=== PATIENT | male | born 1955 | race Caucasian/White ===

== ENCOUNTER 2018-04-12 13:47 | Day surgery (SDC) | payer MEDICARE, BC ==
[~2018-04-12] VITALS: Ht 177.8 cm; Wt 86.2 kg
[~2018-04-12 13:47] MED LIST: ASPI1TAB PO; BISO5TAB5 PO; FLOM0.4C39 PO; GLIM4TAB PO; HYDR2TAB2 PO; HYDR4TAB PO; ISOVUE-300 61% 50ML VIAL (Q9967) As Ordered ONE; LIDOCAINE 1% MDV 20ML VIAL SQ PRN; LIDOCAINE 2% INJ 100 MG/5 ML SDV (FOR ANES.) As Ordered ONE; LOSA25TA14 PO; MECL1CHW2 PO; METF500T13 PO; MIDAZOLAM INJ 2 MG/2 ML VIAL (J2250) As Ordered ONE; MORP30TASA PO; ONDANSETRON 4MG/2ML VIAL (J2405) As Ordered ONE; PRAV80TA2 PO; PROPOFOL 200 MG/20 ML VIAL As Ordered ONE; RANI150T PO; ROCURONIUM BROMIDE 50 MG/5 ML VIAL As Ordered ONE; TIOT18INH INH; VENTAER INH; VITAMIN D2 PO; dexameTHASONE 4 MG/ML 1ML VIAL (J1100) As Ordered ONE; fentaNYL 100 MCG/2 ML INJECTION (J3010) As Ordered ONE
[2018-04-12] MEDS ORDERED: LR 1,000 ML IV ONE (14:00)
[2018-04-12] MEDS ORDERED: fentaNYL 100 MCG/2 ML INJECTION (J3010) As Ordered ONE (15:08)
[2018-04-12] MEDS ORDERED: ePHEDrine SULFATE 25 MG/5 ML(5MG/ML) SYRINGE As Ordered ONE ×2 (15:45→16:41)
[2018-04-12] MEDS ORDERED: GLYCOPYRROLATE INJ 0.2 MG/ML 2 ML VIAL As Ordered ONE (15:54)
[2018-04-12] MEDS ORDERED: NEOSTIGMINE 10 MG/10 ML VIAL (J2710) As Ordered ONE (15:54)
[2018-04-12] MEDS ORDERED: ONDANSETRON 4MG/2ML VIAL (J2405) IV PRN (17:15)
[2018-04-12] MEDS ORDERED: PERCOCET 5MG/325MG TAB PO PRN (17:15)
[2018-04-12] MEDS ORDERED: METOCLOPRAMIDE INJ 10MG/2ML VIAL (J2765) IV PRN (17:15)
[2018-04-12] MEDS ORDERED: LR 1,000 ML IV SCH (17:15)
[2018-04-12] MEDS ORDERED: fentaNYL 100 MCG/2 ML INJECTION (J3010) IV PRN (17:15)
--- NOTE | 2018-04-12 17:24 | ROOR ---
Patient Name: Deniz Reynolds Procedure Date: 04/12/2018 1:47 PM Date of : 1955 Age: 62 Room: Main OR Gender: Male Note Status: Finalized Procedure: ERCP Indications: Bile duct stone(s) Providers: Eliazar Milian MD Referring MD: Sandhya Menendez MD Requesting Provider: Medicines: Monitored Anesthesia Care Complications: No immediate complications. Procedure: Pre-Anesthesia Assessment: - Prior to the procedure, a History and Physical was performed, and patient medications and allergies were reviewed. The patient is competent. The risks and benefits of the procedure and the sedation options and risks were discussed with the patient. All questions were answered and informed consent was obtained. Patient identification and proposed procedure were verified by the physician, the nurse and the anesthesiologist in the procedure room. Mental Status Examination: alert and oriented. Airway Examination: normal oropharyngeal airway and neck mobility. Respiratory Examination: clear to auscultation. CV Examination: normal. Prophylactic Antibiotics: The patient does not require prophylactic antibiotics. Prior Anticoagulants: The patient has taken no previous anticoagulant or antiplatelet agents. ASA Grade Assessment: II - A patient with mild systemic disease. After reviewing the risks and benefits, the patient was deemed in satisfactory condition to undergo the procedure. The anesthesia plan was to use monitored anesthesia care (MAC). Immediately prior to administration of medications, the patient was re-assessed for adequacy to receive sedatives. The heart rate, respiratory rate, oxygen saturations, blood pressure, adequacy of pulmonary ventilation, and response to care were monitored throughout the procedure. The physical status of the patient was re-assessed after the procedure. The Duodenoscope was introduced through the mouth, and advanced to the duodenum and used to inject contrast into the bile duct. The ERCP was accomplished without difficulty. The patient tolerated the procedure well. Findings: The senior security engineer film was normal. The esophagus was successfully intubated under direct vision without detailed examination of the pharynx, larynx, and associated structures. The scope was passed through the upper GI tract without discovering UGI findings. The major papilla was adjacent to a diverticulum. The major papilla was normal. 0.035 inch x 260 cm straight Hydra Jagwire was passed into the biliary tree. The short-nosed traction sphincterotome was passed over the guidewire and the bile duct was then deeply cannulated. Contrast was injected. The main bile duct was diffusely dilated, with a stone causing an obstruction. The largest diameter was 12 mm. The lower third of the main bile duct contained multiple stones, the largest of which was 10 mm in diameter. Biliary sphincterotomy was made with a monofilament traction (standard) sphincterotome using ERBE electrocautery. There was no post-sphincterotomy bleeding. To discover objects, the biliary tree was swept with a 9 mm balloon starting at the bifurcation. Sludge was swept from the duct. Stones were large and did not come out with balloon sweep. One 10 Fr by 7 cm plastic stent with a single external flap and a single internal flap was placed into the common bile duct. Bile flowed through the stent. The stent was in good position. Impression: - The major papilla was adjacent to a diverticulum. - The major papilla appeared normal. - The entire main bile duct was dilated, with a stone causing an obstruction. - Choledocholithiasis was found. Stones were large and did not come out with balloon sweep. So a stent was inserted. - A biliary sphincterotomy was performed. - The biliary tree was swept and sludge was found. - One plastic stent was placed into the common bile duct. Recommendation: - Avoid aspirin and nonsteroidal anti-inflammatory medicines. - The patient will be observed post-procedure, until all discharge criteria are met. - Patient has a contact number available for emergencies. The signs and symptoms of potential delayed complications were discussed with the patient. Return to normal activities tomorrow. Written discharge instructions were provided to the patient. - Full liquid diet for 1 day, then advance as tolerated to resume previous diet. - Use Actigall (ursodiol) 300 mg PO BID for 4 weeks. - Repeat ERCP in 2 months per protocol. - Return to GI clinic in [facility] (address [address], [address], [place] [address]) in 4 -- 6 weeks. Please call GI clinic @ [phone] for apppointment date and time. - Return to primary care physician. Eliazar Milian MD Eliazar Milian MD 04/12/2018 5:23:50 PM This report has been signed electronically. Number of Addenda: 0 Note Initiated On: 04/12/2018 1:47 PM Estimated Blood Loss: Estimated blood loss was minimal.
[2018-04-12 18:55] VITALS: BP 164/71
--- NOTE | 2018-04-12 20:22 | REP ---
ERCP: 94 views. History: Choledocholithiasis. Findings: A sequence of 94 last image hold fluoroscopic spot radiographs of the abdomen taken during the endoscopy procedure documents common bile duct cannulation, contrast injection, multiple choledocholiths, balloon catheter manipulation, and CBD stent placement. 1 minute 53 seconds of fluoroscopy time is reported. Electronically Signed by Mitch Flores MD 04/13/2018 08:14 A
--- NOTE | 2018-04-12 22:08 | ECGEPIP ---
Stationary ECG Study [facility] Test Date: 2018-04-12 Pat Name: MARIANELA CRANDALL Department: Room: - Gender: M Html Web Developer: AMRITA : 1955 Requested By: ANDERSON Whitfield Order Number: [id number] Reading MD: Shiv Montenegro Measurements Intervals [place] Rate: 56 P: 66 [place]: 160 QRS: 29 QRSD: 89 T: 44 QT: 417 QTc: 405 Interpretive Statements SINUS BRADYCARDIA Low limb lead voltages No prior ECG available for comparison at the time of interpretation. Electronically Signed On 04-12-2018 22:08:38 EST by Shiv Montenegro
== END 2018-04-12 19:10 | disposition home or self-care (01) ==
LOC: M SDC 13:47
PROVIDERS: ATTEND Internal Medicine Gastroenterology
DX: K80.51 Calculus of bile duct without cholangitis or cholecystitis with obstruction (principal); I10 Essential (primary) hypertension; E78.00 Pure hypercholesterolemia, unspecified; E11.9 Type 2 diabetes mellitus without complications; K21.9 Gastro-esophageal reflux disease without esophagitis; J45.909 Unspecified asthma, uncomplicated; M79.7 Fibromyalgia; Z91.09 Other allergy status, other than to drugs and biological substances; Z79.899 Other long term (current) drug therapy; Z72.0 Tobacco use; Z90.49 Acquired absence of other specified parts of digestive tract

== ENCOUNTER 2018-05-15 10:04 | Day surgery (SDC) | payer MEDICARE, BC ==
[~2018-05-15] VITALS: Ht 177.8 cm; Wt 88.0 kg
[~2018-05-15 10:04] MED LIST changes: -ISOVUE-300 61% 50ML VIAL (Q9967) As Ordered ONE; -LIDOCAINE 1% MDV 20ML VIAL SQ PRN; -LIDOCAINE 2% INJ 100 MG/5 ML SDV (FOR ANES.) As Ordered ONE; -MIDAZOLAM INJ 2 MG/2 ML VIAL (J2250) As Ordered ONE; +NS 1,000 ML IV ONE; -ONDANSETRON 4MG/2ML VIAL (J2405) As Ordered ONE; -PROPOFOL 200 MG/20 ML VIAL As Ordered ONE; -ROCURONIUM BROMIDE 50 MG/5 ML VIAL As Ordered ONE; -dexameTHASONE 4 MG/ML 1ML VIAL (J1100) As Ordered ONE; -fentaNYL 100 MCG/2 ML INJECTION (J3010) As Ordered ONE
[2018-05-15] MEDS ORDERED: ISOVUE-300 61% 50ML VIAL (Q9967) As Ordered ONE (11:42)
[2018-05-15] MEDS ORDERED: IPRATROPIUM 0.5MG/ALBUTEROL 2.5MG INH SOL UD 3ML (DUONEB)(J7620) As Ordered ONE (12:11)
[2018-05-15] MEDS ORDERED: IPRATROPIUM 0.5MG/ALBUTEROL 2.5MG INH SOL UD 3ML (DUONEB)(J7620) INH ONE (12:15)
[2018-05-15] MEDS ORDERED: fentaNYL 100 MCG/2 ML INJECTION (J3010) As Ordered ONE (12:51)
[2018-05-15] MEDS ORDERED: ROCURONIUM BROMIDE 50 MG/5 ML VIAL As Ordered ONE (12:51)
[2018-05-15] MEDS ORDERED: LIDOCAINE 2% INJ 100 MG/5 ML SDV (FOR ANES.) As Ordered ONE (12:51)
[2018-05-15] MEDS ORDERED: MIDAZOLAM INJ 2 MG/2 ML VIAL (J2250) As Ordered ONE (12:51)
[2018-05-15] MEDS ORDERED: PROPOFOL 200 MG/20 ML VIAL As Ordered ONE (12:51)
[2018-05-15] MEDS ORDERED: ONDANSETRON 4MG/2ML VIAL (J2405) As Ordered ONE (12:52)
[2018-05-15] MEDS ORDERED: dexameTHASONE 4 MG/ML 1ML VIAL (J1100) As Ordered ONE (12:52)
[2018-05-15] MEDS ORDERED: LABETALOL HCL 100 MG/20 ML VIAL As Ordered ONE (13:10)
[2018-05-15] MEDS ORDERED: NEOSTIGMINE 10 MG/10 ML VIAL (J2710) As Ordered ONE (13:27)
[2018-05-15] MEDS ORDERED: GLYCOPYRROLATE INJ 0.2 MG/ML 2 ML VIAL As Ordered ONE (13:27)
--- NOTE | 2018-05-15 13:50 | ROOR ---
Patient Name: Deniz Reynolds Procedure Date: 05/15/2018 12:33 PM Date of : 1955 Age: 62 Room: [facility] Gender: Male Note Status: Finalized Procedure: ERCP Indications: Common bile duct stone(s) Providers: Eliazar Milian MD Referring MD: Sandhya Menendez MD Requesting Provider: Medicines: Monitored Anesthesia Care Complications: No immediate complications. Procedure: Pre-Anesthesia Assessment: - Prior to the procedure, a History and Physical was performed, and patient medications and allergies were reviewed. The patient is competent. The risks and benefits of the procedure and the sedation options and risks were discussed with the patient. All questions were answered and informed consent was obtained. Patient identification and proposed procedure were verified by the physician, the nurse and the anesthesiologist in the procedure room. Mental Status Examination: alert and oriented. Airway Examination: normal oropharyngeal airway and neck mobility. Respiratory Examination: clear to auscultation. CV Examination: normal. Prophylactic Antibiotics: The patient does not require prophylactic antibiotics. Prior Anticoagulants: The patient has taken no previous anticoagulant or antiplatelet agents. ASA Grade Assessment: III - A patient with severe systemic disease. After reviewing the risks and benefits, the patient was deemed in satisfactory condition to undergo the procedure. The anesthesia plan was to use monitored anesthesia care (MAC). Immediately prior to administration of medications, the patient was re-assessed for adequacy to receive sedatives. The heart rate, respiratory rate, oxygen saturations, blood pressure, adequacy of pulmonary ventilation, and response to care were monitored throughout the procedure. The physical status of the patient was re-assessed after the procedure. The Duodenoscope was introduced through the mouth, and advanced to the duodenum and used to inject contrast into the bile duct. The ERCP was accomplished without difficulty. The patient tolerated the procedure well. Findings: A biliary stent was visible on the lithograph press feeder film. The esophagus was successfully intubated under direct vision. The scope was advanced from the mouth to the duodenum. The pharynx, larynx and associated structures, as well as the upper GI tract, were normal. One plastic stent originating in the biliary tree was emerging from the major papilla. The stent was visibly patent. A biliary sphincterotomy done in prior ERCP is noted. The sphincterotomy appeared open. The major papilla was on the rim of a diverticulum. One stent was removed from the biliary tree using a snare. 0.035 inch x 260 cm straight Hydra Jagwire was passed into the biliary tree. The short-nosed traction sphincterotome was passed over the guidewire and the bile duct was then deeply cannulated. Contrast was injected. I personally interpreted the bile duct images. Ductal flow of contrast was adequate. Image quality was adequate. Contrast extended to the entire biliary tree. The lower third of the main bile duct contained filling defect(s) thought to be a stone and sludge. The main bile duct was moderately dilated and diffusely dilated, with a stone causing an obstruction. The largest diameter was 12 mm. Lithotripsy with a basket-type device was successful. The biliary tree was swept with a 12 mm balloon starting at the bifurcation. Sludge was swept from the duct. All stones were removed. Occlusion cholangiogram at the end of the procedure did not show any residual filling defects. Pancreatic duct was neither cannulated nor opacified. Impression: - One visibly patent stent from the biliary tree was seen in the major papilla. - Prior biliary sphincterotomy appeared open. - The major papilla was on the rim of a diverticulum. - One stent was removed from the biliary tree. - A filling defect consistent with a stone and sludge was seen on the cholangiogram. - The entire main bile duct was moderately dilated, with a stone causing an obstruction. - Choledocholithiasis was found. Lithotripsy was successful. Complete removal was accomplished by balloon extraction. - The biliary tree was swept. - Occlusion cholangiogram at the end of the procedure did not show any residual filling defects. Pancreatic duct was neither cannulated nor opacified. Recommendation: - Avoid aspirin and nonsteroidal anti-inflammatory medicines. - The patient will be observed post-procedure, until all discharge criteria are met. - Patient has a contact number available for emergencies. The signs and symptoms of potential delayed complications were discussed with the patient. Return to normal activities tomorrow. Written discharge instructions were provided to the patient. - Clear liquid diet for 1 day, then advance as tolerated to resume previous diet. - Use Actigall (ursodiol) 300 mg PO BID for 4 weeks. - Perform magnetic resonance imaging (MRI) with gadolinium in 4 weeks. - Return to GI clinic in [facility] (address [address], [address] [address]) in 4 -- 6 weeks. Please call GI clinic @ [phone] for apppointment date and time. - Return to primary care physician. Eliazar Milian MD Eliazar Milian MD 05/15/2018 1:50:20 PM This report has been signed electronically. Number of Addenda: 0 Note Initiated On: 05/15/2018 12:33 PM Estimated Blood Loss: Estimated blood loss was minimal.
[2018-05-15] MEDS ORDERED: PERCOCET 5MG/325MG TAB PO PRN (14:30)
[2018-05-15] MEDS ORDERED: fentaNYL 100 MCG/2 ML INJECTION (J3010) IV PRN (14:30)
[2018-05-15 15:30] VITALS: BP 158/76
--- NOTE | 2018-05-15 16:36 | REP ---
C-ARM VIEWS DURING ERCP: Multiple C-Arm views are performed during ERCP exam. Previously noted stent is removed. There is catheterization of the common bile duct with injection of contrast. Balloon catheter is manipulated. 1 minute 31 seconds of fluoroscopy time utilized. Electronically Signed by rBandon Delgado MD 05/15/2018 08:17 P
== END 2018-05-15 15:58 | disposition home or self-care (01) ==
LOC: M SDC 10:04
PROVIDERS: ATTEND Internal Medicine Gastroenterology
DX: K80.51 Calculus of bile duct without cholangitis or cholecystitis with obstruction (principal); Z96.89 Presence of other specified functional implants; Z46.59 Encounter for fitting and adjustment of other gastrointestinal appliance and device; R93.2 Abnormal findings on diagnostic imaging of liver and biliary tract; I48.91 Unspecified atrial fibrillation; I10 Essential (primary) hypertension; E78.5 Hyperlipidemia, unspecified; K21.9 Gastro-esophageal reflux disease without esophagitis; E11.9 Type 2 diabetes mellitus without complications; Z79.82 Long term (current) use of aspirin; Z79.899 Other long term (current) drug therapy; J45.909 Unspecified asthma, uncomplicated; F17.210 Nicotine dependence, cigarettes, uncomplicated
CPT/HCPCS: 43265; 43275; 74330; J1100; J2250; J2405; J2710; J3010; Q9967